=== PATIENT | male | born 1950 | race Caucasian/White ===

== ENCOUNTER 2024-11-26 08:54 | Day surgery (SDC) | payer MEDICARE, OTHER, SELFPAY ==
--- NOTE | 2024-11-26 | PATH_ITS ---
[facility] Accession Number: [id number] No. of containers..02 Tissue . 01 Material submitted: . PART A: colon - CECAL POLYP PART B: colon - SIGMOID POLYP . 01 Diagnosis: A. CECAL POLYP: Sessile serrated adenoma. . B. SIGMOID COLON POLYP: Tubular adenoma. MRV 11/27/2024 1409 Local . 01 Electronically signed: . Valeriano Valencia MD, PhD, Pathologist NPI- [id number] . 01 Gross description: . Part A: CECAL POLYP: Received in formalin are 2 fragment(s) of duarte, soft tissue measuring 0.3 x 0.2 x 0.2 cm to 1.0 x 0.3 x 0.2 cm submitted entirely in 1 cassette(s) Part B: SIGMOID POLYP: Received in formalin is 1 fragment(s) of duarte, soft tissue measuring 0.2 x 0.2 x 0.2 cm submitted entirely in 1 cassette(s) /SILVIA 11/26/2024 2327 Local . 01 Pathologist provided ICD-10: D12.0, D12.5 . 01 CPT . 727555, [id number] Specimen Comment: A courtesy copy of this report has been sent to [facility] Pathology Performed at: [address] [facility], [place], [place] [id number] MD Yair Partida MD Phone: [phone]
[2024-11-26 09:37] VITALS: BP 138/72; PULSE 51; RESP 16; TEMP 36.6; O2SAT 96; BMI 30.9
[2024-11-26] MEDS: LACTATED RINGERS 1,000 ML 100 ML IV (09:49)
--- NOTE | 2024-11-26 10:02 | P.HP_ITS ---
History of Present Illness History of Present Illness Date Patient Seen: 11/26/24 Time Patient Seen: 10:02 Chief complaint: SDC Narrative: 74-year-old white male presents for 10 year interval colon cancer screening. Normal colonoscopy 10 years ago no changes in health. [facility] Social History household members: spouse Smoking Status: Never smoker alcohol intake: current Meds Home Medications and Allergies Home Medications Medication Instructions Recorded Confirmed Type sodium,potassium,mag sulfates 17.5 See Rx Instructions PO .COMPLEX 10/19/24 Rx gram-3.13 gram-1.6 gram oral soln #354 mL (Suprep Bowel Prep Kit) carvedilol 12.5 mg tablet 12.5 mg PO BID 11/26/24 11/26/24 History omeprazole 20 mg capsule,delayed 20 mg PO DAILY 11/26/24 11/26/24 History release Allergies Allergy/AdvReac Type Severity Reaction Status Date / Time Penicillins Allergy Intermediate Rash Verified 11/26/24 09:26 lisinopril AdvReac Intermediate Cough Verified 11/26/24 09:26 Exam Vital Signs (past 8 hours): - 11/26/24 09:37 Temperature 97.8 F Pulse Rate 51 L Respiratory Rate 16 Blood Pressure 138/72 Pulse Oximetry 96 Oxygen Delivery Method Room Air Oxygen Delivery Method Room Air Narrative Exam Narrative: Gen: NAD, sitting comfortably in bed, appears well HEENT: Sclera are anicteric, head is normocephalic and atraumatic, trachea is midline. CV: RRR, no JVD Resp: clear to auscultation bilaterally, equal chest wall movement bilaterally Abd: soft, nontender, normoactive bowel sounds Ext: no edema, full range of motion Neuro: Cranial nerves II-XII grossly intact, no focal deficits Skin: No erythema or ecchymosis. Assessment & Plan Assessment and plan (1) Colon cancer screening: Status: Acute Assessment & Plan narrative: Patient presents for colonoscopy Risks, benefits, alternatives to colonoscopy explained, including but not limited to bowel perforation or other serious complication requiring surgery at less than 1 in 5000 colonoscopies, abdominal pain, cramping or bleeding and less than 1% of colonoscopies, and the chances that we find a diagnosis that would require further intervention of about 2%. Patient agrees to proceed. Time-Based Coding :: [TOTAL MINUTES] spent with patient and on the chart (including review of chart, obtaining history, exam, reviewing outside data, placing orders, documenting exam and treatment plan, and counseling patient) on [DATE]. [employer] Document charge(s): No
--- NOTE | 2024-11-26 10:21 | P.OP.COLON_ITS ---
Operative Date/Time/Diagnoses Date of procedure: 11/26/24 Time of procedure: 10:21 Pre-op diagnosis: Colon screening Post-op diagnosis: same (Cecal polyp, sigmoid polyp, internal hemorrhoids) Procedure & Clinicians Study performed: Colonoscopy with cold snare polypectomy polyps x2 Same procedure as scheduled: Yes Indications: Colon screening Surgeon: Bradley Lind Procedure Notes SCOAP/Timeout: Performed Procedure in detail: Time-out was performed. Mac was induced. Patient was placed in left lateral decubitus position. The perineum was inspected without any gross abnormality. Lubricated pediatric colonoscope was inserted and advanced to the cecum. The terminal ileum was intubated. The colonoscope was withdrawn slowly inspecting the circumference of the colon. Small polyps were noted in the cecum and s igmoid, both removed completely with cold snare polypectomy and retrieved. Very small polyps may have been missed, prep quality was adequate. Retroflexed view of the rectum showed medium-sized, prolapsed nonbleeding internal hemorrhoids. The scope was withdrawn the patient was taken to PACU in good condition. Scope withdrawal time: 9 Findings: internal hemorrhoids and polyp(s) Specimen(s): other (1. Cecal polyp 2. Sigmoid polyp) Complications: none Post-procedure Recommendations: Colonoscopy in 5 years (If in good health at age 79) and High fiber diet Follow up: as needed Disposition: PACU
[2024-11-26 10:22] VITALS: BP 97/46; PULSE 51; RESP 14; TEMP 36.8; O2SAT 98
[2024-11-26 10:27] VITALS: BP 92/48; PULSE 52; RESP 14; TEMP 36.8; O2SAT 98
[2024-11-26 10:34] VITALS: BP 95/55; PULSE 56; RESP 18; TEMP 36.8; O2SAT 97
[2024-11-26 10:39] VITALS: BP 104/62; PULSE 55; RESP 15; TEMP 36.8; O2SAT 98
== END 2024-11-26 10:40 | disposition home or self-care (01) ==
PROVIDERS: PCP Internal Medicine; Referring Provider Surgery; Visit Provider Surgery
PROC: 0DJD8ZZ Inspection of Lower Intestinal Tract, Via Natural or Artificial Opening Endoscopic (ICD-10-PCS; CPT 45378; principal; 2024-11-26 10:00)
DX: Z12.11 Encounter for screening for malignant neoplasm of colon (principal); K64.8 Other hemorrhoids; D12.0 Benign neoplasm of cecum; D12.5 Benign neoplasm of sigmoid colon
CPT/HCPCS: 45385; 85610; J2704